=== PATIENT | female | born 1990 | race Caucasian/White ===

== ENCOUNTER 2018-11-28 19:11 | Emergency (ER) | payer OTHER ==
[~2018-11-28] VITALS: Ht 165.1 cm; Wt 108.0 kg
[2018-11-28] MEDS ORDERED: TYLENOL EXTRA500 MG PO (23:29)
[2018-11-29 01:09] VITALS: BP 118/68
== END 2018-11-29 01:10 | disposition home or self-care (01) ==
LOC: ER 19:11
DX: M62.838 Other muscle spasm (principal); M79.605 Pain in left leg; Z88.2 Allergy status to sulfonamides

== ENCOUNTER 2019-02-27 16:15 | Emergency (ER) | payer OTHER ==
[~2019-02-27] VITALS: Ht 165.1 cm; Wt 108.0 kg
[~2019-02-27 16:15] MED LIST: TYLENOL EXTRA500 MG PO
[2019-02-27 16:28] VITALS: BP 135/78
[2019-02-27 16:33] LABS: URINE BILIRUBIN NEGATIVE (Negative); URINE BLOOD NEGATIVE (Negative); URINE CLARITY CLEAR; URINE COLOR YELLOW; URINE GLUCOSE-RANDOM* NEGATIVE (Negative); URINE KETONES NEGATIVE (Negative); URINE LEUKOCYTES-REFLEX NEGATIVE (Negative); URINE NITRITE-REFLEX NEGATIVE (Negative); URINE PROTEIN (DIPSTICK) NEGATIVE (Negative); URINE SPECIFIC GRAVITY >= 1.030 (1.005-1.035); URINE UROBILINOGEN 0.2 E.U./dl (0.2-1.0)
[2019-02-27] MEDS ORDERED: CYMBALTA60 MG PO (18:12)
[2019-02-27] MEDS ORDERED: LYRICA 75 MG CA75 MG PO (18:12)
[2019-02-27] MEDS ORDERED: TOPAMAX 100 MG100 MG PO (18:12)
[2019-02-27] MEDS ORDERED: PROTONIX 20 MG20 M1 PO (18:13)
[2019-02-27] MEDS ORDERED: CLONAZEPAM 1 MG1 M1 PO (18:13)
[2019-02-27 18:27] LABS: ABSOLUTE NEUTROPHILS 5.3 thou/uL (1.4-8.2); BASOPHILS 0.8 % (0.0-2.0); EOSINOPHILS 2.6 % (0.0-3.0); HEMATOCRIT 33.5 % (37.0-47.0); HEMOGLOBIN 10.7 gm/dL (12.0-15.0); LYMPHOCYTES 38.4 % (24.0-44.0); MCH 23.7 pg (26.0-34.0); MONOCYTES 4.7 % (1.0-8.0); PLATELET COUNT 387 thou/uL (150-400); POLYS 53.5 % (36.0-66.0); RBC 4.52 mil/uL (4.20-5.00); RDW 14.4 % (10.5-14.5)
[2019-02-27 18:34] LABS: CALCIUM 9.1 mg/dL (8.5-10.1); CREATININE 0.8 mg/dL (0.6-1.0); POTASSIUM 3.5 mmol/L (3.5-5.1)
[2019-02-27 18:40] LABS: ALBUMIN 3.8 g/dL (3.4-5.0); TOTAL BILIRUBIN 0.2 mg/dL (<0.1-1.0); TOTAL PROTEIN 8.1 g/dL (6.4-8.2)
[2019-02-27] MEDS ORDERED: PROTONIX40 M1 PO (21:39)
[2019-02-27] MEDS ORDERED: CARAFATE 1 GM TA1 G1 PO (21:47)
[2019-02-27 22:23] VITALS: BP 98/47
--- NOTE | 2019-03-01 07:39 | EKG ---
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 : 1990 Requested By: Lexi Flowers Order Number: [id number] MD: Cotlen Tom Measurements Intervals [place] Rate: 79 P: 26 MN: 144 QRS: 14 QRSD: 108 T: 33 QT: 409 QTc: 469 Interpretive Statements Sinus arrhythmia Nonspecific ST and T wave abnormality No previous ECG available for comparison Electronically Signed On 03-01-2019 7:39:28 CDT by Colten Tom [email or web address] ��������������������������������������������� <ELECTRONICALLY SIGNED> ���������������������������������������� By: Colten Tom MD, [facility] ��������������������������������������������� 03/01/19 0739 1758 1758 Colten Tom MD, FACC /EPI
== END 2019-02-27 22:24 ==
LOC: ER 16:15 → EROBS 21:08 → ER 21:08
PROVIDERS: Physician Assistant
DX: K25.4 Chronic or unspecified gastric ulcer with hemorrhage (principal); R11.2 Nausea with vomiting, unspecified; M79.7 Fibromyalgia; Z88.2 Allergy status to sulfonamides; Z90.89 Acquired absence of other organs

== ENCOUNTER 2019-08-07 16:35 | Emergency (ER) | payer OTHER ==
[~2019-08-07] VITALS: Ht 165.1 cm; Wt 103.0 kg
[~2019-08-07 16:35] MED LIST changes: +CARAFATE 1 GM TA1 G1 PO; +CLONAZEPAM 1 MG1 M1 PO; +CYMBALTA60 MG PO; +LYRICA 75 MG CA75 MG PO; +PROTONIX 20 MG20 M1 PO; +PROTONIX40 M1 PO; +TOPAMAX 100 MG100 MG PO
[2019-08-07] MEDS ORDERED: NEURONTIN600 MG PO (17:32)
[2019-08-07] MEDS ORDERED: BUSPIRONE HCL10 MG PO (17:32)
[2019-08-07 17:37] LABS: ABSOLUTE NEUTROPHILS 7.1 thou/uL (1.4-8.2); BASOPHILS 0.9 % (0.0-2.0); EOSINOPHILS 1.5 % (0.0-3.0); HEMOGLOBIN 11.9 gm/dL (12.0-15.0); LYMPHOCYTES 25.6 % (24.0-44.0); MCH 22.4 pg (26.0-34.0); MCHC 31.3 g/dL (28.0-37.0); MCV 71.6 fL (80.0-100.0); MONOCYTES 5.5 % (1.0-8.0); PLATELET COUNT 522 thou/uL (150-400); POLYS 66.5 % (36.0-66.0); RDW 16.3 % (10.5-14.5); WBC 10.7 thou/uL (4.0-11.0)
[2019-08-07 17:54] LABS: ALBUMIN 4.7 g/dL (3.4-5.0); CREATININE 0.9 mg/dL (0.6-1.0); TOTAL BILIRUBIN 0.5 mg/dL (<0.1-1.0); TOTAL PROTEIN 9.5 g/dL (6.4-8.2)
[2019-08-07 17:56] LABS: POTASSIUM 2.5 mmol/L (3.5-5.1)
[2019-08-07 19:20] LABS: ANISOCYTOSIS 1+; HYPOCHROMASIA 1+; MICROCYTES 1+; OVALOCYTES OCCASIONAL
[2019-08-07] MEDS ORDERED: PHENERGAN 25 MG25 M1 PO (20:57)
[2019-08-07] MEDS ORDERED: POTASSIUM20 PO (20:59)
[2019-08-07 21:14] VITALS: BP 113/73
[2019-08-07 21:32] LABS: URINE BILIRUBIN NEGATIVE (Negative); URINE BLOOD TRACE (Negative); URINE CLARITY CLOUDY; URINE COLOR YELLOW; URINE GLUCOSE-RANDOM* NEGATIVE (Negative); URINE KETONES NEGATIVE (Negative); URINE LEUKOCYTES-REFLEX NEGATIVE (Negative); URINE NITRITE-REFLEX NEGATIVE (Negative); URINE PROTEIN (DIPSTICK) 2+ (Negative); URINE SPECIFIC GRAVITY >= 1.030 (1.005-1.035); URINE UROBILINOGEN 0.2 E.U./dl (0.2-1.0)
[2019-08-07 21:41] LABS: SQUAMOUS 4-10 Moderate /LPF (0-3)
[2019-08-07 21:43] LABS: AMORPHOUS URATES Many /LPF (None Seen); CASTS None Seen /LPF (None Seen); URINE RBC 0-2 Rare /HPF (0-2); URINE WBC-REFLEX None Seen /HPF (0-5)
== END 2019-08-07 21:16 | disposition home or self-care (01) ==
LOC: ER 16:35
PROVIDERS: Physician Assistant
DX: E87.6 Hypokalemia (principal); R11.2 Nausea with vomiting, unspecified; R19.7 Diarrhea, unspecified; M79.7 Fibromyalgia; G89.29 Other chronic pain; M54.9 Dorsalgia, unspecified; Z90.89 Acquired absence of other organs; Z88.2 Allergy status to sulfonamides; Z88.8 Allergy status to other drugs, medicaments and biological substances

== ENCOUNTER 2019-12-03 13:15 | Emergency (ER) | payer OTHER ==
[~2019-12-03] VITALS: Ht 165.1 cm; Wt 104.3 kg
[~2019-12-03 13:15] MED LIST changes: +BUSPIRONE HCL10 MG PO; +NEURONTIN600 MG PO; +PHENERGAN 25 MG25 M1 PO; +POTASSIUM20 PO
[2019-12-03 14:14] LABS: ABSOLUTE NEUTROPHILS 8.2 thou/uL (1.4-8.2); BASOPHILS 0.1 % (0.0-2.0); EOSINOPHILS 1.7 % (0.0-3.0); HEMATOCRIT 36.1 % (37.0-47.0); HEMOGLOBIN 11.3 gm/dL (12.0-15.0); LYMPHOCYTES 25.1 % (24.0-44.0); MCH 23.4 pg (26.0-34.0); MCHC 31.2 g/dL (28.0-37.0); MCV 74.8 fL (80.0-100.0); PLATELET COUNT 406 thou/uL (150-400); POLYS 68.1 % (36.0-66.0); RBC 4.83 mil/uL (4.20-5.00)
[2019-12-03 14:23] LABS: ANION GAP 8 mmol/L (7-16); BUN 16 mg/dL (7-18); CALCIUM 9.3 mg/dL (8.5-10.1); CHLORIDE 103 mmol/L (98-107); CO2 25 mmol/L (21-32); CREATININE 0.7 mg/dL (0.6-1.0); GLUCOSE 95 mg/dL (74-106); POTASSIUM 3.9 mmol/L (3.5-5.1); SODIUM 136 mmol/L (136-145)
[2019-12-03 14:33] LABS: ALBUMIN 3.8 g/dL (3.4-5.0); DIRECT BILIRUBIN < 0.1 mg/dL (<0.1-0.2); SGOT 19 U/L (15-37); SGPT 33 U/L (30-65); TOTAL BILIRUBIN 0.2 mg/dL (<0.1-1.0); TOTAL PROTEIN 8.1 g/dL (6.4-8.2); TROPONIN-I <0.06 ng/mL (<0.06)
--- NOTE | 2019-12-03 16:00 | EKG ---
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 : 1990 Requested By: Leydi Tamayo Order Number: [id number] MD: Joce Cavazos Measurements Intervals [place] Rate: 84 P: -2 NE: 142 QRS: 20 QRSD: 102 T: 11 QT: 395 QTc: 467 Interpretive Statements Sinus rhythm Borderline T wave abnormalities Compared to ECG 02/27/2019 17:58:47 T-wave abnormality now present Sinus arrhythmia no longer present ST (T wave) deviation no longer present Electronically Signed On 12-03-2019 15:59:34 CDT by Joce Cavazos [email or web address] <ELECTRONICALLY SIGNED> By: Joce Cavazos MD 12/03/19 1559 1325 1325 Joce Cavazos MD /EPI
[2019-12-03 16:31] VITALS: BP 122/80
== END 2019-12-03 16:35 | disposition home or self-care (01) ==
LOC: ER 13:15
PROVIDERS: Emergency Medicine
DX: J06.9 Acute upper respiratory infection, unspecified (principal); R07.9 Chest pain, unspecified; M79.7 Fibromyalgia; E66.9 Obesity, unspecified; Z79.899 Other long term (current) drug therapy; Z88.8 Allergy status to other drugs, medicaments and biological substances; Z88.2 Allergy status to sulfonamides

== ENCOUNTER 2020-03-09 10:13 | Emergency (ER) | payer OTHER ==
[~2020-03-09] VITALS: Ht 165.1 cm; Wt 102.5 kg
[2020-03-09] MEDS ORDERED: WELLBUTRIN SR150 MG PO (10:38)
[2020-03-09 11:33] LABS: ABSOLUTE NEUTROPHILS 4.9 thou/uL (1.4-8.2); BASOPHILS 0.9 % (0.0-2.0); EOSINOPHILS 6.6 % (0.0-3.0); HEMATOCRIT 33.6 % (37.0-47.0); HEMOGLOBIN 10.5 gm/dL (12.0-15.0); LYMPHOCYTES 37.4 % (24.0-44.0); MCH 23.8 pg (26.0-34.0); MCHC 31.1 g/dL (28.0-37.0); MCV 76.6 fL (80.0-100.0); MONOCYTES 4.9 % (1.0-8.0); PLATELET COUNT 373 thou/uL (150-400); POLYS 50.2 % (36.0-66.0); RBC 4.39 mil/uL (4.20-5.00); RDW 17.5 % (10.5-14.5); WBC 9.8 thou/uL (4.0-11.0)
[2020-03-09 11:36] LABS: ANION GAP 11 mmol/L (7-16); BUN 16 mg/dL (7-18); CALCIUM 8.6 mg/dL (8.5-10.1); CHLORIDE 103 mmol/L (98-107); CO2 21 mmol/L (21-32); CREATININE 0.9 mg/dL (0.6-1.0); GLUCOSE 127 mg/dL (74-106); SODIUM 135 mmol/L (136-145)
[2020-03-09 11:46] LABS: DIRECT BILIRUBIN < 0.1 mg/dL (<0.1-0.2); SGOT 33 U/L (15-37); SGPT 29 U/L (30-65); TOTAL BILIRUBIN 0.3 mg/dL (0.2-1.0); TOTAL PROTEIN 8.2 g/dL (6.4-8.2); TROPONIN-I <0.06 ng/mL (<0.06)
[2020-03-09] MEDS ORDERED: GUAIFEN-CODEINE10 ML PO (13:39)
[2020-03-09 13:55] VITALS: BP 131/77
--- NOTE | 2020-03-11 07:42 | EKG ---
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
== END 2020-03-09 13:55 | disposition home or self-care (01) ==
LOC: ER 10:13
PROVIDERS: Emergency Medicine
DX: J06.9 Acute upper respiratory infection, unspecified (principal); Z20.828 Contact with and (suspected) exposure to other viral communicable diseases; Z79.899 Other long term (current) drug therapy; Z88.2 Allergy status to sulfonamides; Z88.8 Allergy status to other drugs, medicaments and biological substances

== ENCOUNTER 2020-08-11 16:42 | Emergency (ER) | payer OTHER ==
[~2020-08-11] VITALS: Ht 165.1 cm; Wt 108.9 kg
[~2020-08-11 16:42] MED LIST changes: +GUAIFEN-CODEINE10 ML PO; +WELLBUTRIN SR150 MG PO
[2020-08-11 18:03] LABS: URINE BILIRUBIN NEGATIVE (Negative); URINE BLOOD NEGATIVE (Negative); URINE CLARITY CLEAR; URINE COLOR YELLOW; URINE GLUCOSE-RANDOM* NEGATIVE (Negative); URINE KETONES NEGATIVE (Negative); URINE LEUKOCYTES-REFLEX NEGATIVE (Negative); URINE NITRITE-REFLEX NEGATIVE (Negative); URINE PROTEIN (DIPSTICK) NEGATIVE (Negative); URINE SPECIFIC GRAVITY >= 1.030 (1.005-1.035); URINE UROBILINOGEN 0.2 E.U./dl (0.2-1.0)
[2020-08-11 19:59] LABS: ABSOLUTE NEUTROPHILS 6.9 thou/uL (1.4-8.2); BASOPHILS 0.8 % (0.0-2.0); EOSINOPHILS 1.7 % (0.0-3.0); HEMATOCRIT 33.5 % (37.0-47.0); HEMOGLOBIN 10.5 gm/dL (12.0-15.0); LYMPHOCYTES 36.7 % (24.0-44.0); MCH 23.2 pg (26.0-34.0); MCHC 31.3 g/dL (28.0-37.0); MCV 74.2 fL (80.0-100.0); MONOCYTES 4.3 % (1.0-8.0); PLATELET COUNT 399 thou/uL (150-400); POLYS 56.5 % (36.0-66.0); RBC 4.52 mil/uL (4.20-5.00); RDW 18.1 % (10.5-14.5); WBC 12.1 thou/uL (4.0-11.0)
[2020-08-11 20:14] LABS: CREATININE 0.8 mg/dL (0.6-1.0); POTASSIUM 3.9 mmol/L (3.5-5.1); TOTAL BILIRUBIN 0.3 mg/dL (0.2-1.0); TOTAL PROTEIN 8.3 g/dL (6.4-8.2)
[2020-08-11 20:20] LABS: CALCIUM 9.5 mg/dL (8.5-10.1)
[2020-08-11 20:29] LABS: MICROCYTES 3+
[2020-08-11 20:30] LABS: ANISOCYTOSIS 2+; HYPOCHROMASIA 3+
[2020-08-11] MEDS ORDERED: ZOFRAN ODT4 MG PO (21:36)
[2020-08-11 22:03] VITALS: BP 110/81
== END 2020-08-11 22:03 | disposition home or self-care (01) ==
LOC: ER 16:42
PROVIDERS: Physician Assistant
DX: B34.9 Viral infection, unspecified (principal); E86.0 Dehydration; R11.2 Nausea with vomiting, unspecified; R19.7 Diarrhea, unspecified; H92.02 Otalgia, left ear; Z20.828 Contact with and (suspected) exposure to other viral communicable diseases; M79.7 Fibromyalgia; Z90.89 Acquired absence of other organs; Z79.899 Other long term (current) drug therapy; Z88.8 Allergy status to other drugs, medicaments and biological substances; Z88.2 Allergy status to sulfonamides

== ENCOUNTER 2021-07-12 08:08 | Emergency (ER) | payer OTHER ==
[~2021-07-12] VITALS: Ht 165.1 cm; Wt 109.8 kg
[~2021-07-12 08:08] MED LIST changes: +ZOFRAN ODT4 MG PO
[2021-07-12] MEDS ORDERED: NAPROSYN500 MG PO (09:34)
[2021-07-12] MEDS ORDERED: FLEXERIL PO (09:34)
[2021-07-12 10:07] VITALS: BP 106/58
== END 2021-07-12 10:34 | disposition home or self-care (01) ==
LOC: ER 08:08
DX: R20.2 Paresthesia of skin (principal); M79.7 Fibromyalgia; M79.604 Pain in right leg; Z90.89 Acquired absence of other organs; Z79.891 Long term (current) use of opiate analgesic; Z79.899 Other long term (current) drug therapy; Z79.1 Long term (current) use of non-steroidal anti-inflammatories (NSAID); Z88.2 Allergy status to sulfonamides; Z88.8 Allergy status to other drugs, medicaments and biological substances; Z91.041 Radiographic dye allergy status

== ENCOUNTER 2021-10-02 12:19 | Emergency (ER) | payer OTHER ==
[~2021-10-02] VITALS: Ht 165.1 cm; Wt 104.8 kg
[~2021-10-02 12:19] MED LIST changes: +FLEXERIL PO; +NAPROSYN500 MG PO
[2021-10-02 13:07] LABS: AMP/METHAMP Negative (Negative); BARBITURATES Negative (Negative); BENZODIAZEPINES Negative (Negative); COCAINE Negative (Negative); METHADONE Negative (Negative); OPIATES Negative (Negative); PCP Negative (Negative)
[2021-10-02 13:28] LABS: ABSOLUTE NEUTROPHILS 5.4 thou/uL (1.4-8.2); BASOPHILS 1.3 % (0.0-2.0); EOSINOPHILS 0.8 % (0.0-3.0); HEMATOCRIT 31.1 % (37.0-47.0); HEMOGLOBIN 9.7 gm/dL (12.0-15.0); LYMPHOCYTES 30.9 % (24.0-44.0); MCH 22.3 pg (26.0-34.0); MCHC 31.2 g/dL (28.0-37.0); MCV 71.5 fL (80.0-100.0); MONOCYTES 4.2 % (1.0-8.0); PLATELET COUNT 429 thou/uL (150-400); POLYS 62.8 % (36.0-66.0); RBC 4.35 mil/uL (4.20-5.00); RDW 18.3 % (10.5-14.5); WBC 8.6 thou/uL (4.0-11.0)
[2021-10-02 13:33] LABS: CALCIUM 9.2 mg/dL (8.5-10.1); CREATININE 0.8 mg/dL (0.6-1.0); POTASSIUM 3.5 mmol/L (3.5-5.1)
[2021-10-02] MEDS ORDERED: ATIVAN0.5 M1 PO (13:41)
[2021-10-02] MEDS ORDERED: NAPROSYN500 MG PO (13:41)
[2021-10-02 14:15] LABS: ANISOCYTOSIS 1+; HYPOCHROMASIA 1+; MICROCYTES 1+
[2021-10-02 15:47] VITALS: BP 184/92
== END 2021-10-02 15:49 | disposition home or self-care (01) ==
LOC: ER 12:19
PROVIDERS: Emergency Medicine
DX: M54.12 Radiculopathy, cervical region (principal); Z20.822 Contact with and (suspected) exposure to COVID-19; R45.851 Suicidal ideations; Z90.89 Acquired absence of other organs; Z79.899 Other long term (current) drug therapy; Z88.2 Allergy status to sulfonamides; Z88.8 Allergy status to other drugs, medicaments and biological substances